=== PATIENT | male | born 1950 | race Caucasian/White ===

== ENCOUNTER 2022-05-05 17:13 | Inpatient (IN) | payer BC, MEDICARE ==
[2022-05-05] MEDS ORDERED: Lactated Ringers 1,000 ML IV STA (17:33)
[2022-05-05] MEDS ORDERED: Cefepime 2 GM in Premix Bag 1 BAG IV STA (18:02)
[2022-05-05] MEDS ORDERED: Acetaminophen 500 MG Tab PO ONE (18:13)
[2022-05-05 18:24] LABS: BLOOD UREA NITROGEN,BUN 30 mg/dL (7.0-18.0); CHLORIDE,CL 99 mmol/L (98-107); GLUCOSE RANDOM 118 mg/dL (74-106); POTASSIUM,K 4.2 mmol/L (3.5-5.1); SODIUM,NA 136 mmol/L (136-148)
[2022-05-05 18:30] LABS: ESTIMATED GFR 53 mL/min (>60)
[2022-05-05] MEDS ORDERED: VANCOmycin 1.75 GM/350 ML 1.75 GM in Premix Bag 1 BAG IV ONE (18:30)
[2022-05-05] MEDS ORDERED: Dexamethasone 10 MG/ML SDV IVPUSH ONE (19:51)
[2022-05-05] MEDS ORDERED: REMDESIVIR 200 MG in Sodium Chloride 0.9% 250 ML IV ONE (19:51)
[2022-05-05] MEDS ORDERED: Sodium Chloride 0.9% 1,000 ML IV ONE (20:24)
[2022-05-05] MEDS ORDERED: QUEtiapine 100 MG Tab PO ONE (23:00)
[2022-05-05] MEDS ORDERED: OXcarbazepine 300 MG Tab PO ONE (23:00)
[2022-05-05] MEDS: Cefepime 1 GM in Premix Bag 1 BAG IV SCH (23:44)
[2022-05-06 06:56] LABS: CARBON DIOXIDE,CO2 27.6 mmol/L (21.0-32.0); POTASSIUM,K 3.7 mmol/L (3.5-5.1)
[2022-05-06] MEDS ORDERED: Dexamethasone 4 MG/ML SDV IVPUSH SCH (09:00)
[2022-05-06] MEDS: Levothyroxine 25 MCG Tab PO SCH (09:28)
[2022-05-06] MEDS: Clopidogrel 75 MG Tab PO SCH (09:29)
[2022-05-06] MEDS: Cefepime 1 GM in Premix Bag 1 BAG IV SCH (09:33)
[2022-05-06] MEDS: Cefepime 2 GM in Premix Bag 1 BAG IV SCH ×2 (16:13→23:30)
[2022-05-06] MEDS: Sennosides 8.6 MG Tab PO SCH (17:15)
[2022-05-06] MEDS: Polyethylene Glycol 3350 Powder 17 GM Packet PO SCH ×2 (17:15→20:03)
[2022-05-06] MEDS ORDERED: VANCOmycin 1.5 GM/300 ML 300 ML IV SCH (18:00)
[2022-05-06] MEDS: QUEtiapine 100 MG Tab PO SCH (20:02)
[2022-05-06] MEDS: OXcarbazepine 300 MG Tab PO SCH (20:03)
[2022-05-07 06:27] LABS: CARBON DIOXIDE,CO2 27.4 mmol/L (21.0-32.0); POTASSIUM,K 3.8 mmol/L (3.5-5.1)
[2022-05-07] MEDS: Levothyroxine 25 MCG Tab PO SCH (06:30)
[2022-05-07] MEDS: Sennosides 8.6 MG Tab PO SCH (08:10)
[2022-05-07] MEDS: Clopidogrel 75 MG Tab PO SCH (08:10)
[2022-05-07] MEDS: Polyethylene Glycol 3350 Powder 17 GM Packet PO SCH ×2 (08:10→20:11)
[2022-05-07] MEDS: Cefepime 2 GM in Premix Bag 1 BAG IV SCH ×3 (08:13→23:55)
[2022-05-07] MEDS ORDERED: Dexamethasone 4 MG Tab PO SCH (09:00)
[2022-05-07] MEDS: VANCOmycin 1.5 GM/300 ML 300 ML IV SCH (12:58)
[2022-05-07] MEDS: Diltiazem 120 MG Cap.CD PO SCH (18:01)
[2022-05-07] MEDS: QUEtiapine 100 MG Tab PO SCH (20:11)
[2022-05-07] MEDS: OXcarbazepine 300 MG Tab PO SCH (20:11)
[2022-05-08 06:19] LABS: CARBON DIOXIDE,CO2 28.1 mmol/L (21.0-32.0)
[2022-05-08] MEDS: VANCOmycin 1.5 GM/300 ML 300 ML IV SCH (06:30)
[2022-05-08] MEDS: Levothyroxine 25 MCG Tab PO SCH (06:32)
[2022-05-08] MEDS: Cefepime 2 GM in Premix Bag 1 BAG IV SCH ×3 (08:33→23:26)
[2022-05-08] MEDS: Clopidogrel 75 MG Tab PO SCH (08:34)
[2022-05-08] MEDS: Sennosides 8.6 MG Tab PO SCH (08:35)
[2022-05-08] MEDS: Diltiazem 120 MG Cap.CD PO SCH (08:35)
[2022-05-08] MEDS: Polyethylene Glycol 3350 Powder 17 GM Packet PO SCH ×2 (08:36→20:51)
[2022-05-08] MEDS: QUEtiapine 100 MG Tab PO SCH (20:51)
[2022-05-08] MEDS: OXcarbazepine 300 MG Tab PO SCH (20:51)
[2022-05-09] MEDS: VANCOmycin 1.5 GM/300 ML 300 ML IV SCH (00:28)
[2022-05-09 06:05] LABS: CARBON DIOXIDE,CO2 26.1 mmol/L (21.0-32.0); POTASSIUM,K 4.2 mmol/L (3.5-5.1)
[2022-05-09] MEDS: Levothyroxine 25 MCG Tab PO SCH (08:17)
[2022-05-09] MEDS: Cefepime 2 GM in Premix Bag 1 BAG IV SCH (08:32)
[2022-05-09] MEDS: Sennosides 8.6 MG Tab PO SCH (09:25)
[2022-05-09] MEDS: Clopidogrel 75 MG Tab PO SCH (09:25)
[2022-05-09] MEDS: Polyethylene Glycol 3350 Powder 17 GM Packet PO SCH (09:40)
[2022-05-09] MEDS: Diltiazem 120 MG Cap.CD PO SCH (09:40)
[2022-05-09] MEDS ORDERED: cefTRIAXone 1 GM in Sodium Chloride 0.9% 50 ML IV SCH (11:00)
[2022-05-09] MEDS ORDERED: cefTRIAXone 2 GM in Premix Bag 1 BAG IV SCH (11:30)
== END 2022-05-09 17:30 | disposition home or self-care (01) | DRG 177 ==
LOC: MW.ED 17:13 → MW.MS 19:52
PROVIDERS: ADMIT Internal Medicine; ATTEND Internal Medicine
PROC: 8E0ZXY6 Isolation (ICD-10-PCS; principal; 2022-05-05)
PROC: 3E0333Z Introduction of Anti-inflammatory into Peripheral Vein, Percutaneous Approach (ICD-10-PCS; 2022-05-05)
DX: U07.1 COVID-19 (principal); J12.82 Pneumonia due to coronavirus disease 2019; J96.01 Acute respiratory failure with hypoxia; R78.81 Bacteremia; L03.116 Cellulitis of left lower limb; I73.9 Peripheral vascular disease, unspecified; J44.0 Chronic obstructive pulmonary disease with (acute) lower respiratory infection; F31.9 Bipolar disorder, unspecified; E03.9 Hypothyroidism, unspecified; F17.210 Nicotine dependence, cigarettes, uncomplicated; N40.0 Benign prostatic hyperplasia without lower urinary tract symptoms; J44.9 Chronic obstructive pulmonary disease, unspecified; I48.91 Unspecified atrial fibrillation; Z79.01 Long term (current) use of anticoagulants; Z79.890 Hormone replacement therapy; Z79.899 Other long term (current) drug therapy
CPT/HCPCS: 36415; 70450; 71045; 80053; 81001; 82550; 83605; 83735; 84100; 84443; 84484; 85025; 85610; 87040 ×2; 93005; A9270; J0692; J3370; J7120; U0002; 71250; 71250-26; 74176; 74176-26; 80048; 80202; 87077; 87154; 87186; 93306; 96361; 96365; 96366; 96367; 96375; 99285-25; 99291; J0696; J1100; J7030; J8540